=== PATIENT | female | born 1950 | race Caucasian/White ===

== ENCOUNTER 2018-08-02 06:45 | Inpatient (IN) | payer BC, MEDICARE ==
[~2018-08-02] VITALS: Ht 162.6 cm; Wt 91.3 kg
[2018-08-02] MEDS ORDERED: ONDANSETRON ODT 4 MG ONE (07:00)
[2018-08-02] MEDS ORDERED: PLEASE ENTER HEIGHT AND WEIGHT MC SCH (07:00)
[2018-08-02] MEDS ORDERED: MORPHINE SULFATE 4 MG/ML, 1ML IVPush PRN (07:00)
[2018-08-02] MEDS ORDERED: PLEASE ENTER ALLERGIES MC SCH (07:00)
[2018-08-02] MEDS ORDERED: ONDANSETRON ODT 4 MG PO ONE (07:00)
[2018-08-02] MEDS ORDERED: SODIUM CHLORIDE FLUSH 10ML SYR IVF ONE (07:00)
[2018-08-02] MEDS ORDERED: MORPHINE SULFATE 4 MG/ML, 1ML ONE (07:01)
[2018-08-02 07:29] LABS: BASOPHILS # (AUTO) 0.04 x10^3/uL (0-0.1); BASOPHILS % (AUTO) 0 % (0-1); EOSINOPHILS # (AUTO) 0.41 x10^3/uL (0-0.4); EOSINOPHILS % (AUTO) 3 % (1-7); LYMPHOCYTES # (AUTO) 1.63 x10^3/uL (1-3.4); LYMPHOCYTES % (AUTO) 13 % (22-44); MD NO; MEAN CORPUSCULAR HEMOGLOBIN 28.6 pg (27.0-34.8); MEAN CORPUSCULAR HGB CONC 31.1 g/dL (32.4-35.8); MEAN CORPUSCULAR VOLUME 91.8 fL (80-100); MEAN PLATELET VOLUME 9.4 fL (7.4-10.4); MONOCYTES # (AUTO) 0.58 x10^3/uL (0.2-0.8); MONOCYTES % (AUTO) 4 % (2-9); NEUTROPHILS # (AUTO) 10.33 x10^3/uL (1.8-6.8); NEUTROPHILS % (AUTO) 80 % (42-75); PLATELET COUNT 303 x10^3/uL (130-400); RED BLOOD COUNT 3.99 x10^6/uL (3.82-5.3); RED CELL DISTRIBUTION WIDTH 13.4 % (9.6-15.2)
[2018-08-02 07:42] LABS: ALBUMIN 3.3 g/dL (3.4-5.0); ANION GAP 10 mmol/L (5-15); CHLORIDE 103 mmol/L (98-107); CREATININE 1.38 mg/dL (0.55-1.02)
[2018-08-02 07:45] LABS: TROPONIN I < 0.015 ng/mL (0.000-0.045)
[2018-08-02] MEDS ORDERED: SODIUM CHLORIDE 0.9%, 500ML IVBOLUS ONE (08:00)
[2018-08-02] MEDS ORDERED: HYDROmorphone 1 MG/ML, 1ML IV ONE (08:00)
[2018-08-02] MEDS ORDERED: OMNIPAQUE 350 MG/ML, 100ML BOTTLE ONE (08:27)
[2018-08-02] MEDS ORDERED: HYDROmorphone 2 MG/ML, 1ML ONE (08:58)
[2018-08-02 09:07] LABS: ALBUMIN 3.1 g/dL (3.4-5.0); ANION GAP 9 mmol/L (5-15); CALCIUM 8.9 mg/dL (8.5-10.1); CHLORIDE 102 mmol/L (98-107); CREATININE 1.35 mg/dL (0.55-1.02)
[2018-08-02] MEDS ORDERED: HYDR-3241 PO (10:16)
[2018-08-02] MEDS ORDERED: COLC0.6T37 PO (10:16)
[2018-08-02] MEDS ORDERED: NAPR-850 PO (10:16)
[2018-08-02] MEDS ORDERED: SITA25TA PO (10:16)
[2018-08-02] MEDS ORDERED: VALA500T4 PO (10:16)
[2018-08-02] MEDS ORDERED: NYST1000 PO (10:16)
[2018-08-02] MEDS ORDERED: GABA600T2 PO (10:16)
[2018-08-02] MEDS ORDERED: ESOM20CA PO (10:16)
[2018-08-02] MEDS ORDERED: METF500T17 PO (10:16)
[2018-08-02] MEDS ORDERED: LEVO150T5 PO (10:16)
[2018-08-02] MEDS ORDERED: LISI2.5T PO (10:16)
[2018-08-02] MEDS ORDERED: GLIP5TAB10 PO (10:16)
[2018-08-02] MEDS ORDERED: ESTR1PAT25 PO (10:16)
[2018-08-02] MEDS ORDERED: CETI10CA PO (10:16)
[2018-08-02] MEDS ORDERED: INSULIN REGULAR 100 UNITS/ML, 3ML VIAL IVPush ONE ×2 (10:30→17:00)
[2018-08-02] MEDS ORDERED: SODIUM POLYSTYRENE SULFONATE ORAL SUSP PO ONE ×3 (10:30→22:30)
[2018-08-02] MEDS ORDERED: morphine SULFATE 10 MG/ML, 1ML IVPush PRN (10:30)
[2018-08-02] MEDS ORDERED: LABETALOL 5MG/ML, 20ML IVPush PRN (10:30)
[2018-08-02] MEDS ORDERED: ACETAMINOPHEN 325 MG TABLET PO PRN (10:30)
[2018-08-02] MEDS ORDERED: CALCIUM GLUCONATE 4.6 MEQ in SODIUM CHLORIDE 0.9% 50 ML IV ONE (11:00)
[2018-08-02] MEDS ORDERED: DEXTROSE 50%, 50ML SYRINGE IVPush ONE ×2 (11:00→17:00)
[2018-08-02] MEDS ORDERED: MAGNESIUM SULFATE PMX 1GM/100ML IVPB ONE (11:30)
[2018-08-02] MEDS: SODIUM CHLORIDE 0.9% 1,000 ML IV SCH (11:32)
[2018-08-02 11:38] LABS: TROPONIN I < 0.015 ng/mL (0.000-0.045)
[2018-08-02] MEDS ORDERED: CARV12.52 PO (11:47)
[2018-08-02] MEDS ORDERED: SITA100T PO (11:47)
[2018-08-02] MEDS ORDERED: ALBU8.5H8 INH (11:47)
[2018-08-02] MEDS ORDERED: BECL10.62 INH (11:47)
[2018-08-02] MEDS ORDERED: FLUC150T2 PO (11:47)
[2018-08-02] MEDS ORDERED: LOVA40TA2 PO (11:47)
[2018-08-02] MEDS ORDERED: MAGNESIUM SULFATE 6 GM in SODIUM CHLORIDE 0.9% 100 ML IV ONE (12:00)
[2018-08-02] MEDS: INSULIN LISPRO 100 UNITS/ML, PEN SQ-INSULIN SCH ×3 (13:05→22:33)
[2018-08-02 13:30] VITALS: BP 118/56
[2018-08-02] MEDS ORDERED: ALBUTEROL SULFATE 2.5 MG/3 ML NPPB PRN (14:30)
[2018-08-02 16:14] LABS: CULTURE INDICATED? YES; MICROSCOPIC AUTO
[2018-08-02 16:23] LABS: ANION GAP 7 mmol/L (5-15); CHLORIDE 104 mmol/L (98-107)
[2018-08-02 16:24] LABS: CREATININE 1.36 mg/dL (0.55-1.02)
[2018-08-02] MEDS ORDERED: DEXTROSE 50%, 50ML SYRINGE ONE (16:46)
[2018-08-02 17:48] LABS: TROPONIN I < 0.015 ng/mL (0.000-0.045)
[2018-08-02] MEDS: CARVEDILOL 12.5 MG TABLET PO SCH (18:05)
[2018-08-02 19:38] VITALS: BP 105/55
[2018-08-02] MEDS: ALBUTEROL SULFATE 2.5 MG/3 ML NPPB SCH (19:47)
[2018-08-02] MEDS ORDERED: ATORVASTATIN 40 MG TABLET PO SCH (21:00)
[2018-08-02] MEDS: LOVASTATIN 40 MG TABLET PO SCH (21:02)
[2018-08-02 21:11] LABS: ANION GAP 7 mmol/L (5-15); CALCIUM 8.4 mg/dL (8.5-10.1); CHLORIDE 103 mmol/L (98-107); CREATININE 1.32 mg/dL (0.55-1.02)
[2018-08-02] MEDS: GABAPENTIN 300 MG CAPSULE PO SCH (23:10)
[2018-08-03 01:52] VITALS: BP 121/69
[2018-08-03 05:37] LABS: BASOPHILS # (AUTO) 0.03 x10^3/uL (0-0.1); BASOPHILS % (AUTO) 0 % (0-1); EOSINOPHILS # (AUTO) 0.14 x10^3/uL (0-0.4); EOSINOPHILS % (AUTO) 1 % (1-7); LYMPHOCYTES # (AUTO) 1.63 x10^3/uL (1-3.4); LYMPHOCYTES % (AUTO) 15 % (22-44); MD NO; MEAN CORPUSCULAR HGB CONC 33.7 g/dL (32.4-35.8); MEAN CORPUSCULAR VOLUME 91.8 fL (80-100); MEAN PLATELET VOLUME 9.5 fL (7.4-10.4); MONOCYTES # (AUTO) 0.73 x10^3/uL (0.2-0.8); MONOCYTES % (AUTO) 7 % (2-9); NEUTROPHILS # (AUTO) 8.06 x10^3/uL (1.8-6.8); NEUTROPHILS % (AUTO) 76 % (42-75); PLATELET COUNT 220 x10^3/uL (130-400); RED BLOOD COUNT 3.07 x10^6/uL (3.82-5.3); RED CELL DISTRIBUTION WIDTH 13.8 % (9.6-15.2)
[2018-08-03 05:42] LABS: ALBUMIN 2.6 g/dL (3.4-5.0); ANION GAP 7 mmol/L (5-15); CALCIUM 8.2 mg/dL (8.5-10.1); CHLORIDE 106 mmol/L (98-107)
[2018-08-03 05:47] LABS: ALANINE AMINOTRANSFERASE 22 U/L (12-78); ALKALINE PHOSPHATASE 138 U/L (45-117); BILIRUBIN,TOTAL 0.4 mg/dL (0.2-1.0); CREATININE 1.16 mg/dL (0.55-1.02); TOTAL PROTEIN 6.2 g/dL (6.4-8.2)
[2018-08-03] MEDS: SODIUM CHLORIDE 0.9% 1,000 ML IV SCH (06:22)
[2018-08-03] MEDS: CARVEDILOL 12.5 MG TABLET PO SCH ×2 (06:26→17:23)
[2018-08-03] MEDS: ALBUTEROL SULFATE 2.5 MG/3 ML NPPB SCH ×4 (07:00→20:40)
[2018-08-03 07:23] VITALS: BP 117/67
[2018-08-03] MEDS: GABAPENTIN 300 MG CAPSULE PO SCH ×2 (08:17→20:17)
[2018-08-03] MEDS: ASPIRIN 81 MG TABLET CHEW PO SCH (08:17)
[2018-08-03] MEDS: INSULIN LISPRO 100 UNITS/ML, PEN SQ-INSULIN SCH ×4 (08:23→20:15)
[2018-08-03 09:05] LABS: ANION GAP 5 mmol/L (5-15); CALCIUM 8.3 mg/dL (8.5-10.1); CHLORIDE 105 mmol/L (98-107)
[2018-08-03] MEDS ORDERED: ASPIRIN 81 MG TABLET CHEW PO ONE (11:30)
[2018-08-03] MEDS: INSULIN GLARGINE 100 UNITS/ML, PEN SQ-INSULIN SCH ×2 (15:30→21:11)
[2018-08-03 16:03] VITALS: BP 134/71
[2018-08-03 16:23] LABS: HEMOGLOBIN A1C 7.6 % (4.2-6.3)
[2018-08-03 20:00] VITALS: BP 134/75
[2018-08-03] MEDS: LOVASTATIN 40 MG TABLET PO SCH (20:15)
[2018-08-04] MEDS: SODIUM CHLORIDE 0.9% 1,000 ML IV SCH (01:59)
[2018-08-04 02:00] VITALS: BP 145/73
[2018-08-04 05:41] LABS: BASOPHILS # (AUTO) 0.03 x10^3/uL (0-0.1); BASOPHILS % (AUTO) 0 % (0-1); EOSINOPHILS % (AUTO) 4 % (1-7); LYMPHOCYTES # (AUTO) 2.49 x10^3/uL (1-3.4); LYMPHOCYTES % (AUTO) 29 % (22-44); MD NO; MEAN CORPUSCULAR HEMOGLOBIN 31.5 pg (27.0-34.8); MEAN CORPUSCULAR HGB CONC 33.7 g/dL (32.4-35.8); MEAN CORPUSCULAR VOLUME 93.7 fL (80-100); MEAN PLATELET VOLUME 9.6 fL (7.4-10.4); MONOCYTES # (AUTO) 0.65 x10^3/uL (0.2-0.8); MONOCYTES % (AUTO) 8 % (2-9); NEUTROPHILS # (AUTO) 5.07 x10^3/uL (1.8-6.8); NEUTROPHILS % (AUTO) 59 % (42-75); PLATELET COUNT 211 x10^3/uL (130-400); RED BLOOD COUNT 2.87 x10^6/uL (3.82-5.3); RED CELL DISTRIBUTION WIDTH 13.8 % (9.6-15.2)
[2018-08-04 05:59] LABS: CHLORIDE 105 mmol/L (98-107)
[2018-08-04 06:08] LABS: ALANINE AMINOTRANSFERASE 18 U/L (12-78); ALBUMIN 2.4 g/dL (3.4-5.0); ALKALINE PHOSPHATASE 125 U/L (45-117); ANION GAP 6 mmol/L (5-15); BILIRUBIN,TOTAL 0.3 mg/dL (0.2-1.0); CALCIUM 8.3 mg/dL (8.5-10.1); CREATINE KINASE, TOTAL 31 U/L (26-192); CREATININE 0.88 mg/dL (0.55-1.02); TOTAL PROTEIN 6.3 g/dL (6.4-8.2)
[2018-08-04] MEDS: ALBUTEROL SULFATE 2.5 MG/3 ML NPPB SCH (07:00)
[2018-08-04] MEDS ORDERED: REGADENOSON 0.4 MG/5 ML SYRINGE ONE (08:20)
[2018-08-04] MEDS: INSULIN LISPRO 100 UNITS/ML, PEN SQ-INSULIN SCH ×2 (08:34→12:46)
[2018-08-04] MEDS: GABAPENTIN 300 MG CAPSULE PO SCH (08:35)
[2018-08-04] MEDS: CARVEDILOL 12.5 MG TABLET PO SCH (08:35)
[2018-08-04] MEDS: ASPIRIN 81 MG TABLET CHEW PO SCH (08:36)
[2018-08-04 08:40] VITALS: BP 169/83
[2018-08-04] MEDS ORDERED: INSULIN GLARGINE 100 UNITS/ML, PEN SQ-INSULIN SCH (09:00)
[2018-08-04 13:27] VITALS: BP 157/74
[2018-08-04] MEDS ORDERED: FLUCONAZOLE 100 MG TABLET PO SCH (14:00)
[2018-08-04] MEDS ORDERED: PRED20TA PO (14:32)
[2018-08-04] MEDS ORDERED: FLUC100T PO (14:32)
[2018-08-04] MEDS ORDERED: SULF-169 PO (14:32)
[2018-08-04] MEDS ORDERED: ASPI-515 PO (14:32)
[2018-08-04] MEDS ORDERED: TIOT18CA INH (14:32)
[2018-08-04] MEDS ORDERED: SULFAMETH./TRIMETHOPRIM DS 800MG/160MG TABLET PO SCH (21:00)
== END 2018-08-04 16:37 | disposition home or self-care (01) | DRG 314 ==
LOC: ED 08:55 → EDIP 08:56 → ED 09:17 → 5SO 11:26 → DCLOUNGE 08-04 16:07
PROVIDERS: ADMIT Internal Medicine; ATTEND Internal Medicine
DX: I31.3 Pericardial effusion (noninflammatory) (principal); N17.0 Acute kidney failure with tubular necrosis; E44.1 Mild protein-calorie malnutrition; E87.1 Hypo-osmolality and hyponatremia; J45.901 Unspecified asthma with (acute) exacerbation; N39.0 Urinary tract infection, site not specified; I25.10 Atherosclerotic heart disease of native coronary artery without angina pectoris; M79.7 Fibromyalgia; G89.29 Other chronic pain; E11.9 Type 2 diabetes mellitus without complications; I10 Essential (primary) hypertension; E87.5 Hyperkalemia; E83.42 Hypomagnesemia; I25.2 Old myocardial infarction; Z68.34 Body mass index [BMI] 34.0-34.9, adult; Z88.0 Allergy status to penicillin; Z88.8 Allergy status to other drugs, medicaments and biological substances; Z88.6 Allergy status to analgesic agent; Z88.1 Allergy status to other antibiotic agents; Z91.040 Latex allergy status; Z95.5 Presence of coronary angioplasty implant and graft; Z87.891 Personal history of nicotine dependence; Z90.710 Acquired absence of both cervix and uterus; Z90.49 Acquired absence of other specified parts of digestive tract; Z72.89 Other problems related to lifestyle; Z79.4 Long term (current) use of insulin; Z79.899 Other long term (current) drug therapy; Z79.82 Long term (current) use of aspirin
CPT/HCPCS: 36415; 84145; 99285; J7613; 71045; 71275; 78452; 80048; 80053; 81001; 82040; 82550; 82962; 83036; 83605; 83735; 83880; 84484; 85025; 85379; 87086; 93005; 93017; 93306; 94640; 96374; 96375; G0378; J1170; J1815; J2785; J3475; Q0162; Q9967; A9502; C9898; J2270; J7030; J7040